=== PATIENT | female | born 1975 | race Caucasian/White ===

== ENCOUNTER 2020-01-27 10:07 | Emergency (ER) | payer BC ==
[~2020-01-27] VITALS: Ht 154.9 cm; Wt 65.4 kg
[2020-01-27] MEDS ORDERED: FLUORESCEIN OPTH STRIP 1 MG OP ONE (10:20)
--- NOTE | 2020-01-27 10:21 | NUR ---
44 Y/O FEMALE PRESENTS TO ER WITH C/O LEFT EYE PAIN X 30 MIN AGO. 7/10 PAIN. PT STATES SHE WAS PUTTING A FRAME TOGETHER WHEN SUPER GLUE ACCIDENTLY SQUIRTED INTO EYE. ALSO C/O BLURRY VISION. "EYE BALL STIFFENING". EYE BALL IS RED, AND WATERY. PT DENIES N/V/D, SOB, FEVER, COUGH. VSS, SIDE RAIL X1, BED IN LOW POSITION. WILL CONTINUE TO MONITOR. PMH: PARTIAL HYSTERECTOMY, BRADYCARDIA ALLERGY: TRISTEN MARIE
[2020-01-27 10:22] VITALS: BP 139/82
[2020-01-27] MEDS ORDERED: TETRACAINE HCL/PF 0.5% OPTH 4 ML BTL ONE (11:47)
[2020-01-27] MEDS ORDERED: TETRACAINE HCL/PF 0.5% OPTH 4 ML BTL OP ONE (11:50)
[2020-01-27 11:57] VITALS: BP 139/82
--- NOTE | 2020-01-27 11:57 | NUR ---
Patient discharged with v/s stable. Written and verbal after care instructions given and explained. Patient alert, oriented and verbalized understanding of instructions. Ambulatory with steady gait. All questions addressed prior to discharge. ID band removed. Patient advised to follow up with PMD. Rx of ERYTHROMYCIN given. Patient educated on indication of medication including possible reaction and side effects. Opportunity to ask questions provided and answered.
== END 2020-01-27 11:57 | disposition home or self-care (01) ==
LOC: MED 10:07
DX: T15.82XA Foreign body in other and multiple parts of external eye, left eye, initial encounter (principal); I51.89 Other ill-defined heart diseases; Z90.49 Acquired absence of other specified parts of digestive tract; Z90.711 Acquired absence of uterus with remaining cervical stump
CPT/HCPCS: 99283